=== PATIENT | male | born 1940 | race Caucasian/White ===

== ENCOUNTER 2020-08-28 06:06 | Observation (INO) ==
--- NOTE | 2020-08-02 07:32 | ANES ---
Anesthesia Pre Procedure Eval HOME MEDICATIONS acetaminophen 500 mg tablet 1,000 mg PO Q6H PRN tab 04/28/18 [Last Taken Unknown] hydrocortisone 2.5 % topical cream 1 applic TP BID-QID PRN #20 g 12/30/18 [Last Taken Unknown] lisinopril 20 mg tablet 10 mg PO DAILY #90 tab 04/17/20 [Last Taken Unknown] celecoxib 200 mg capsule 200 mg PO DAILY #30 cap 05/05/20 [Last Taken Unknown] empagliflozin 25 mg tablet 25 mg PO QAM #30 tab 05/05/20 [Last Taken Unknown] blood sugar diagnostic See Rx Instructions .ROUTE .MEDSUPPLY #50 ea 06/13/20 [Last Taken Unknown] insulin detemir U-100 100 unit/mL (3 mL) subcutaneous pen See Rx Instructions SUBCUT BID #15 ml 07/12/20 [Last Taken Unknown] lancets 30 gauge See Rx Instructions .ROUTE .MEDSUPPLY #100 ea 07/12/20 [Last Taken Unknown] pen needle, diabetic 32 gauge x 5/16" See Rx Instructions .ROUTE .MEDSUPPLY #100 ea 07/12/20 [Last Taken Unknown] sildenafil (pulm.hypertension) 20 mg tablet 20 mg PO DAILY PRN #30 tab 07/12/20 [Last Taken Unknown] omeprazole magnesium 20 mg tablet,delayed release 20 mg PO DAILY #30 tab 07/31/20 [Last Taken Unknown] Allergies/Adverse Reactions: Allergies Allergy/AdvReac Type Severity Reaction Status Date / Time No Known Drug Allergies Allergy Verified 07/19/20 11:28 - Planned Procedure Planned Procedure: Left Arthroplasty Total Knee Medication List Reviewed:: Yes Allergies Verified: Yes Medical History (Last Reviewed 08/02/20 @ 07:31 by Antelmo Salazar CRNA) Lightheadedness (Acute) Sinusitis (Chronic) Over weight (Chronic) bmi 28.6 Malaise and fatigue (Acute) Impacted cerumen of right ear (Acute) Somatic dysfunction (Chronic) Onset Date: 05/2017 cervical region, rib cage, spine affecting head region, thoracic region Osteoarthritis (Chronic) Onset Date: 03/2017 Paraspinal muscle spasm (Chronic) Onset Date: 05/2017 Neck pain (Chronic) Onset Date: 05/2017 Gout (Chronic) Onset Date: 03/2017 GERD (gastroesophageal reflux disease) (Chronic) Onset Date: 03/2017 Essential hypertension (Chronic) Onset Date: 03/2017 Erectile dysfunction (Chronic) Onset Date: 03/2017 DJD (degenerative joint disease) of knee (Chronic) Onset Date: Unknown bilateral diabetes mellitus type 2 (Chronic) Onset Date: Unknown Influenza vaccine not given Wants to receive next week at pharmacy 12/30/18. ROSIO Meza Abnormal weight loss (Resolved) Anorexia (Resolved) Edema leg (Resolved) Obesity (Resolved) Onset Date: 03/2017 obesity class 1 Trapezius muscle spasm (Resolved) Onset Date: 05/2017 Uncontrolled type 2 diabetes mellitus (Resolved) Endocrine referral if uncontrolled. Surgical History (Last Reviewed 08/02/20 @ 07:31 by Antelmo Salazar CRNA) Hx of cholecystectomy Onset Date: ~12/2018 [place] Colonoscopy refused Onset Date: Unknown H/O repair of rotator cuff Onset Date: 2008 Right-[place]ind[place] History of tonsillectomy Onset Date: Unknown Family History (Last Reviewed 08/02/20 @ 07:31 by Antelmo Salazar CRNA) Father Diabetes Hypertension Cancer Mother Heart disease - Family Anesthesia History Family History:: no untoward family reactions to anesthesia - Airway/Neck/Teeth Teeth Condition: intact - Respiratory Smoking Status: Former smoker Sleep Apnea currently treated: No Sleep Apnea by current assessment: No - Cardiovascular Cardiac History: hypertension Tolerate Activity: Fair - Gastrointestinal NPO since: instructed npo after mn - Anesthesia Assessment and Plan ASA Class: PS, III Anesthesia Type Plan: Spinal - adductor canal block Planned difficult intubation/equipment available: No
[~2020-08-28 06:06] MED LIST: MORPHINE SULFATE 15 MG TABLET.SA PO PRN; ROPIVACAINE/CLONIDIN/KETOROLAC 50 ML SYRINGE IJ PRN; TRANEXAMIC ACID IN NACL,ISO-OS 1,000 MG/100 ML BAG IV PRN; ceFAZolin SODIUM 1 GM VIAL IV PRN
[2020-08-28] MEDS: RINGER'S SOLUTION,LACTATED 1,000 ML IV PRN ×2 (07:07→09:20)
[2020-08-28] MEDS ORDERED: diphenhydrAMINE HCL 50 MG/ML VIAL IV PRN ×2 (07:12→10:03)
[2020-08-28] MEDS ORDERED: HYDROmorphone HCL 2 MG/ML VIAL IV PRN (07:12)
[2020-08-28] MEDS ORDERED: PROCHLORPERAZINE EDISYLATE 5 MG/ML VIAL IV PRN (07:12)
[2020-08-28] MEDS ORDERED: NALOXONE HCL 0.4 MG/ML VIAL IV PRN (07:12)
[2020-08-28] MEDS ORDERED: ONDANSETRON HCL/PF 2 MG/ML VIAL IV PRN (07:12)
[2020-08-28] MEDS ORDERED: ceFAZolin SODIUM 1 GM VIAL ONE (07:14)
[2020-08-28] MEDS ORDERED: ISOPROPYL ALCOHOL 480 APPL BTL MC ONE (07:14)
[2020-08-28] MEDS ORDERED: ROPIVACAINE/CLONIDIN/KETOROLAC 50 ML SYRINGE IJ ONE (07:15)
[2020-08-28] MEDS ORDERED: LIDOCAINE HCL 20 ML VIAL ONE (07:27)
[2020-08-28] MEDS ORDERED: ONDANSETRON HCL/PF 2 MG/ML VIAL ONE (07:28)
[2020-08-28] MEDS ORDERED: PROPOFOL VIAL IV ONE (07:28)
[2020-08-28] MEDS ORDERED: fentaNYL CITRATE/PF 50 MCG/ML AMPUL ONE (07:28)
[2020-08-28] MEDS ORDERED: BUPIVACAINE HCL/EPINEPHRINE 50 ML VIAL ONE (07:29)
[2020-08-28] MEDS ORDERED: MAGNESIUM HYDROXIDE 30 ML UDC PO PRN (10:03)
[2020-08-28] MEDS ORDERED: ZOLPIDEM TARTRATE 5 MG TABLET PO PRN (10:03)
[2020-08-28] MEDS ORDERED: MORPHINE SULFATE 2 MG/ML DISP.SYRIN IV PRN (10:03)
[2020-08-28] MEDS ORDERED: oxyCODONE HCL/ACETAMINOPHEN 1 TAB TABLET PO PRN (10:03)
[2020-08-28] MEDS ORDERED: RINGER'S SOLUTION,LACTATED 1,000 ML IV PRN (10:03)
[2020-08-28] MEDS ORDERED: ACETAMINOPHEN 500 MG TABLET PO PRN (10:03)
[2020-08-28] MEDS ORDERED: MAG HYDROX/ALUMINUM HYD/SIMETH 30 ML UDC PO PRN (10:03)
--- NOTE | 2020-08-28 10:03 | OR ---
Operative Report - Dictated Report Narrative: Date: 11/28/2020 Preoperative diagnosis: Left knee degenerative joint disease. Postoperative diagnosis: Left knee degenerative joint disease. Procedure: Left total knee arthroplasty. Surgeon: Carson Joy M.D. Neurology Physician: Aaron Sloan PA-C (provided and essential set of skilled, educated hands that assisted with transfer, positioning, prepping, draping, manipulation, retraction, placement of jigs, injection, insertion of implants, irrigation, closure wounds, and dressings all of which could not be performed by the available surgical crew) Anesthesia: Spinal with regional block and local periarticular joint injection. Complications: None Specimens: Bone. Estimated blood loss: Minimal. Tourniquet time: 80 minutes at 325 millimeters of mercury. Retained implants: Depuy Attune size 7 left lugged cemented posterior stabilized femoral component. Size 7 fixed-bearing cemented tibial platform. 7 by 5 millimeter posterior stabilized cross-linked tibial insert. 41 millimeter medialized patella button. Indications: Mr. Sanchez is a 79-year-old gentleman who has had longstanding left knee pain and arthrosis. This patient was followed in my clinic for period of time with significant complaints of left knee pain consistent with arthritic changes. He had failed conservative measures including, but not limited to, activity modification, passage of time, medications, and other conservative measures. Patient wished to proceed with surgical treatment. The risks, benefits, and alternatives were discussed in clinic. The risks of , blood clots, bleeding, infection, nerve/tendon blood vessel/ injury, malposition of components, intraoperative fracture, postoperative limited range of motion, persistent pain, failure of components, and need for additional procedures. Patient wished to proceed consent was obtained after answering all questions. Procedure: After marking the correct extremity on the floor, the patient was taken to the operating room. A timeout was performed. IV antibiotics consisting of Ancef were administered prior to the procedure. A regional followed by spinal anesthetic was induced by anesthesia, per my request, on the operative table with all bony prominences well-padded. Mahmood catheter was placed, and a bump was placed under the operative side buttock. SCDs and MADDY hose were utilized on the nonoperative leg. A well-padded tourniquet was applied to the operative thigh. The operative leg was then pre-scrubbed with alcohol, prepped, and draped in a standard sterile fashion. After exsanguinating the extremity with an Esmarch bandage, the tourniquet was inflated. After marking out the anterior knee for standard incision centered over the patella, the skin was incised and dissected down to the joint retinaculum. The joint retinaculum was marked out as well as the horizontal axis of the patella, and a standard medial parapatellar arthrotomy was then made. The most proximal aspect of the quadriceps tendon and the patella tendon insertion were protected from release. A partial synovectomy was performed as well as a resection of the infrapatellar fat pad. The distal femoral fat pad proximal to the trochlea was also resected using cautery. The soft tissues were elevated off the medial aspect of the proximal tibia using a Santiago elevator ensuring that we did not transect the medial collateral ligament. Upon initial evaluation range of motion was approximately 0 degrees to 130 degrees of flexion. There were signs of advanced arthrosis in the medial and patellofemoral greater than lateral joint spaces. There were large marginal osteophytes which were removed with a rongeur. The knee was hyperflexed and the patella was tucked laterally. Protecting the surrounding soft tissues with Homans, an entry drill was placed down the femoral canal using Whitesides line for guidance into the entry point. The intramedullary femoral alignment yasir was utilized in order to cut the distal femur in 5 degrees of valgus resecting 10 millimeters of bone. Next the distal femur was sized to a size 7. A posterior referencing guide was utilized to place the distal femoral cutting block in 3 degrees of external rotation. This was pinned into place. The rotation was confirmed both visually and based on anatomic landmarks. The 4 in 1 cutting jig of the appropriate size was utilized in order to make all bony cuts. The floridalma wing was used to ensure no notching. Retractors were utilized in order to protect surrounding soft tissues. This cut did not result in any excessive notching. We then cut the box centered over the distal femur. This allowed for resection of the anterior and posterior cruciate ligaments. I then turned my attention to the preparation of the tibia. Using an extra medullary tibial alignment yasir, 3 millimeters of bone was resected off the medial articular surface. This was made perpendicular to the mechanical axis of the joint with the alignment yasir centered over the ankle mortise. The alignment yasir was checked and was noted to be parallel to the mechanical axis, centered over the medial one third of the tibial tubercle, paralleling the anterior surface of the tibia. We then turned our attention to the remaining meniscus and soft tissues. These were removed while protecting the surrounding ligaments and soft tissues. The marginal osteophytes off the anterior, posterior, medial, lateral aspects of the femur and tibia were removed. The tibia was sized out to a size 7. Next the tibia was drilled and punched in an externally rotated position. Next the trial femur and a series of tibial inserts were utilized in order to allow for full extension and maximal flexion. It was found that a 5 millimeter insert gave the best range of motion and stability at multiple flexion points as well as at full extension there was less than 2 mm of gapping both medially and laterally. There is minimal anterior translation with the knee at 90 degrees of flexion and no signs of being able to dislocate the knee. The patella was then prepared. The initial thickness was 22 millimeters. This was reamed down to 12 millimeters parallel to the anterior surface of the patella. It was sized out to a size 41 medialized patella button. This was then drilled and trialed. Without any medial restraint the patella tracked appropriately and did not sublux or dislocate. At this point, it was felt these were the appropriate sized implants, and all trials were removed. The standard periarticular joint injection consisting of ropivacaine, Toradol, and epinephrine were injected into the periarticular joint tissues. The bony surfaces were thoroughly irrigated with a pulsatile-suction saline irrigation device. A bone plug from the prior resected anterior chamfer cut was placed into the drill hole at the distal femur. The bony surfaces were then dried in preparation for placement of the implants. The cement was vacuum mixed per the cardiopulmonary specialist's instructions. The cement was placed on the dry bony surfaces and posterior aspect of the implants. The implants were impacted into place, removing all extruded cement. At this point anesthesia administered tranexamic acid per protocol intravenously. The knee was placed in extension with axial loading with the trial insert while the cement cured. Once the cement cured, all remaining extruded cement was removed. The knee was placed through a range of motion with the trial insert to ensure appropriate range of motion and stability. Final range of motion was approximately 0 to 130 degrees. The knee was again thoroughly irrigated with pulsatile saline lavage. The final polyethylene insert was then impacted into place ensuring no retained soft tissues. The remaining periarticular joint injection was injected. A medium Hemovac drain was placed exiting superior laterally. The knee was then placed over a triangle and the arthrotomy was closed with interrupted #1 Vicryl after thoroughly irrigating the joint. The deep and subcutaneous tissues were closed with interrupted 0 and 3-0 Vicryl respectively. Skin was closed with a running subcutaneous 3-0 Monocryl and Prineo Dermabond dressing. 4 x 4's, Sof-Rol, and a full leg Lester wrap were applied. All sponge, needle, blade, and instrument counts were correct prior to closing the wounds. Postoperative condition: The patient was awoken and transferred to the postanesthesia care unit in stable condition. Plan is to be admitted to the inpatient medical/surgical floor postoperatively for 24 hours of IV antibiotics, physical therapy, occupational therapy, and medical comanagement. Patient will be weightbearing as tolerated with range of motion as tolerated. DVT prophylaxis will be with SCDs, MADDY hose, and pharmacological anticoagulation. Anticipated hospital stay is approximately 1-3 days.
[2020-08-28] MEDS ORDERED: SILDENAFIL CITRATE 20 MG TABLET PO PRN (10:06)
--- NOTE | 2020-08-28 10:54 | ANES ---
Post Anesthesia Discharge - Transfer of Care Transfer of Care handoff given to nurse: Yes - Discharge from PACU Discharge from PACU when meets criteria: Yes - Discharge to ASU Discharge to ASU-no complications/pt stable: Yes
--- NOTE | 2020-08-28 10:55 | ANES ---
Post Anesthesia Assessment - Vital Signs Vitals: Last Vital Signs Temp 36.4 C 08/28/20 10:55 Pulse 98 08/28/20 10:55 Resp 15 08/28/20 10:55 BP 110/62 08/28/20 10:55 Pulse Ox 95 08/28/20 10:55 Airway Patency: Normal - Mental Status Level Of Consciousness: Awake - Pain Level Pain Score: 0 - N/V Assessment Nausea/Vomiting Presence: None Dehydration:: No
--- NOTE | 2020-08-28 10:55 | ANES ---
Anesthesia Procedure Note Procedure Note: ANESTHESIA PROCEDURE NOTE Date of Procedure: 08/28/2020. Time of procedure: 814. Performed by: Maninder Azevedo CRNA Business Systems Technician: None. Preprocedure diagnosis: Left knee degenerative joint disease. Post procedure diagnosis: Same. Procedure: Left ultrasound guided adductor canal block for postoperative analgesia. Indications: The patient is a 79-year-old male, requesting left ultrasound- guided abductor canal nerve block for postoperative analgesia related to left total knee arthroplasty. Findings: See below. Details of the procedure: The tissue over the intended target site was cleansed with ChloraPrepand draped in a sterile fashion. 2 ml Lidocaine 1 % was infiltrated to the skin and subcutaneous tissue at the intended target site. Under sterile technique and ultrasound guidance a 20-gauge block needle was inserted through the left sartorius muscle to the saphenous nerve just anterior and medial to the superficial femoral artery and vein. 15 mL's of 0.5% bupivacaine plus epinephrine 1-200,000 was injected after negative aspiration for blood. Needle tip and spread of local anesthetic surrounding the saphenous nerve was observed throughout the injection with real time ultrasound visualization. The needle was then removed intact. No complications were noted. The images were retained in the Hospital medical database. EBL: Minimal. Fluids: N/A. Specimen: N/A. Post procedure condition: The patient tolerated the procedure well. No complications were noted. Thank you for this consultation. Maninder Azevedo CRNA
[2020-08-28] MEDS: KETOROLAC TROMETHAMINE 15 MG/ML VIAL IV SCH ×3 (12:50→21:49)
[2020-08-28] MEDS: ceFAZolin SODIUM 1 GM in DEXTROSE 5 % IN WATER 100 ML IV SCH ×6 (13:36→23:32)
[2020-08-28] MEDS: ONDANSETRON HCL/PF 2 MG/ML VIAL IV PRN (15:10)
[2020-08-28] MEDS ORDERED: INSULIN GLARGINE,HUM.REC.ANLOG 100 UNITS/ML VIAL SC SCH (21:00)
[2020-08-28] MEDS ORDERED: SENNOSIDES/DOCUSATE SODIUM 1 TAB TABLET PO SCH (21:00)
[2020-08-28] MEDS: MORPHINE SULFATE 15 MG TABLET.SA PO SCH (21:48)
[2020-08-28] MEDS: ASPIRIN 81 MG TABLET.DR PO SCH (21:48)
[2020-08-29] MEDS: KETOROLAC TROMETHAMINE 15 MG/ML VIAL IV SCH ×2 (03:44→10:11)
[2020-08-29] MEDS: ONDANSETRON HCL/PF 2 MG/ML VIAL IV PRN (05:11)
[2020-08-29 06:37] LABS: Hematocrit 42.6 % (42.0-52.0); Mean Cell Volume 96.8 fl (78-100); Mean Corpuscular Hemoglobin 31.8 pg (27-31); Mean Corpuscular Hgb Conc 32.9 g/dl (32-36); Mean Platelet Volume 10.6 fl (8-11.3); Platelet Count 119 K/mm3 (150-450); Red Cell Distribution Width 12.9 % (11.5-14.0); White Blood Count 9.3 K/mm3 (4.0-10.5)
[2020-08-29 06:42] LABS: Anion Gap 8.9 mmol/L (6.8-13.8); BUN/Creatinine Ratio 16.1 (9.0-21.6); Calcium * 8.2 mg/dL (7.9-10.9); Carbon Dioxide 28.6 mmol/L (24-32.6); Estimated Creat Clear 57.2; Potassium 4.5 mmol/L (3.4-4.6)
[2020-08-29] MEDS ORDERED: PANTOPRAZOLE SODIUM 20 MG TABLET.DR PO SCH (07:00)
[2020-08-29] MEDS: MORPHINE SULFATE 15 MG TABLET.SA PO SCH (08:41)
[2020-08-29] MEDS ORDERED: LISINOPRIL 10 MG TABLET PO SCH (09:00)
[2020-08-29] MEDS ORDERED: EMPAGLIFLOZIN 10 MG TABLET PO SCH (09:00)
[2020-08-29] MEDS ORDERED: INSULIN GLARGINE,HUM.REC.ANLOG 100 UNITS/ML VIAL SC SCH (09:00)
[2020-08-29] MEDS ORDERED: ENOXAPARIN SODIUM 40 MG/0.4 ML SYRG SC SCH (09:03)
[2020-08-29] MEDS: ASPIRIN 81 MG TABLET.DR PO SCH (09:27)
--- NOTE | 2020-08-29 12:45 | DS ---
Date of Discharge:: 08/29/20 Hospital Course: Mr. Sanchez was admitted to the floor after undergoing left total knee arthroplasty. Tolerated this well. Was admitted to the floor postoperatively for 24 hours of IV antibiotics, pain control, medical comanagement, and occupational and physical therapy. OT and PT were consulted to assist with activities of daily living and ambulation. Was made weightbearing as tolerated with range of motion as tolerated. Pain was initially controlled with IV regimen. This was transitioned to oral once tolerating a by mouth intake. Was resumed on home diet and medications. Had a Mahmood catheter inserted and the operating room which was discontinued on postoperative day 1. A drain was placed intraoperatively into the knee which was discontinued on postoperative day 1. Lovenox SCD and MADDY hose were utilized for DVT prophylaxis. Vital signs remained stable to the hospital course. Serial labs were obtained which showed a final hemoglobin of 14.0 grams. BMP was reviewed and was stable. Physical examination throughout the hospital course showed an extremity that had sensation that was intact to light touch, palpable pulses, a benign wound, motor intact to the toes, ankle, and knee. Knee range of motion was approximately 5 degrees to 80 degrees. Once an oral pain regimen was tolerated and physical therapy goals were met, it was felt that they were stable for discharge to home. Instructions: Continue with weightbearing as tolerated and range of motion as tolerated. It is OK to shower on the wound if it is not draining. If you note any drainage or for comfort you can cover with dry gauze and tape. Change every 2-3 days as needed. Continue with physical therapy. Resume home diet. Report any fever over 101.5 Fahrenheit, uncontrolled pain, increased drainage, foul odor of drainage, new or increased calf pain or shortness of breath, or any other significant complaints. A 81 mg twice daily aspirin was started on postop day 1 and will be continued for 6 weeks postoperatively if not allergic. Continue with MADDY hose on the operative extremity until instructed otherwise. No driving until instructed otherwise. Follow up in approximately 10-14 days. Procedures Performed: see notes below List Procedures: Status post left knee replacement Results and Findings: Lab Pending Results 08/29/20 06:15: WBC 9.3, RBC 4.40 L, Hgb 14.0, Hct 42.6, MCV 96.8, MCH 31.8 H, MCHC 32.9, RDW 12.9, Plt Count 119 L, MPV 10.6 08/29/20 06:15: Sodium 140, Plasma Sodium 141, Potassium 4.5, Chloride 107 H, Carbon Dioxide 28.6, Anion Gap 8.9, BUN 18, Creatinine 1.12, Est GFR (Non-Af Amer) 68, BUN/Creatinine Ratio 16.1, Random Glucose 185 H, Calcium 8.2 Discharge Location: Home Disposition: Home self-care Condition: Good Discharge Activity: Activity as tolerated, Weight bearing, Other - With wheeled walker Discharge Diet: Consistent carbs Referrals: Radha Kolb DO [Primary Care Provider] - Additional Patient Instructions (free text): Physical Therapy at [facility] outpatient rehab on August 31 at 8:30am. Follow up [facility] Orthopedic office appointment on September 19 at 9:30am. Prescriptions (Any new or edited meds): Morphine Sulfate [Ms Contin] 15 mg PO Q12H #14 tablet.sa Transmission Status: Sent to [facility] oxyCODONE HCL/ACETAMINOPHEN [Percocet 5 MG/325 MG] 2 tab PO Q4H PRN #56 tab PRN Reason: Moderate Pain (Pain Scale 4-6) Transmission Status: Sent to [facility] Sennosides/Docusate Sodium [Senokot-S] 2 tab PO HS #30 tab Transmission Status: Pending to [facility] Complete Home Medications List: Complete Home Medication List: acetaminophen 500 mg tablet 1,000 mg PO Q6H PRN tab 04/28/18 hydrocortisone 2.5 % topical cream 1 applic TP BID-QID PRN #20 g 12/30/18 lisinopril 20 mg tablet 10 mg PO DAILY #90 tab 04/17/20 celecoxib 200 mg capsule 200 mg PO DAILY #30 cap 05/05/20 empagliflozin 25 mg tablet 25 mg PO QAM #30 tab 05/05/20 blood sugar diagnostic See Rx Instructions .ROUTE .MEDSUPPLY #50 ea 06/13/20 insulin detemir U-100 100 unit/mL (3 mL) subcutaneous pen See Rx Instructions SUBCUT BID #15 ml 07/12/20 lancets 30 gauge See Rx Instructions .ROUTE .MEDSUPPLY #100 ea 07/12/20 pen needle, diabetic 32 gauge x 5/16" See Rx Instructions .ROUTE .MEDSUPPLY #100 ea 07/12/20 sildenafil (pulm.hypertension) 20 mg tablet 20 mg PO DAILY PRN #30 tab 07/12/20 omeprazole magnesium 20 mg tablet,delayed release 20 mg PO DAILY #30 tab 07/31/20 Aspirin [Aspirin Enteric Coated] 81 mg PO BID tablet. 08/29/20 Morphine Sulfate [Ms Contin] 15 mg PO Q12H #14 tablet. 08/29/20 Sennosides/Docusate Sodium [Senokot-S] 2 tab PO HS #30 tab 08/29/20 oxyCODONE HCL/ACETAMINOPHEN [Percocet 5 MG/325 MG] 2 tab PO Q4H PRN #56 tab 08/29/20 Amb Orders for Discharge: PT Evaluation and Treatment* Facility: [facility], Location: Rehabilitation Services Forms: Patient Portal Registration
[2020-08-29 14:21] VITALS: BP 122/75
== END 2020-08-29 14:38 | disposition home or self-care (01) ==
LOC: SUR 06:06 → MS 06:06
PROVIDERS: ADMIT Orthopaedic Surgery; ATTEND Orthopaedic Surgery